=== PATIENT | female | born 1965 | race Caucasian/White ===

== ENCOUNTER 2020-09-23 18:20 | Emergency (ER) | payer MEDICAID ==
[~2020-09-23] VITALS: Ht 152.4 cm; Wt 94.3 kg
[2020-09-23 18:36] VITALS: BP 135/78
[2020-09-23] MEDS ORDERED: NACL 0.9% 1,000 ML IV ONE (19:25)
--- NOTE | 2020-09-23 19:30 | NUR ---
54 Y/O CAME TO THE ED WITH DAUGHTER C/O CHEST PAIN AND HEADACHE X 1 DAY. PT STATES, "I HAVE 8/10 CHEST PAIN AND HEADACHE, DOES NOT RADIATE TO ANYWHERE." DENIES N/V/D; SKIN IS PINK/WARM/DRY; AAOX4 WITH EVEN AND STEADY GAIT; LUNGS CLEAR BL; HR EVEN AND REGULAR; PT DENIES ANY FEVER, PATIENT STATES PAIN OF 7/10 AT THIS TIME; VSS; PATIENT POSITIONED FOR COMFORT; HOB ELEVATED; BEDRAILS UP X2; BED DOWN. ER MD MADE AWARE OF PT STATUS. NKA PMH: DENIES
[2020-09-23 19:44] LABS: BASOPHILS # (AUTO) 0.1 K/uL (0.00-0.22); BASOPHILS % (AUTO) 0.7 % (0.0-2.0); EOSINOPHILS # (AUTO) 0.3 K/uL (0-0.4); EOSINOPHILS % (AUTO) 3.6 % (0.0-4.0); HEMATOCRIT 34.4 % (36-48); LYMPHOCYTES # (AUTO) 2.9 K/uL (2.5-16.5); LYMPHOCYTES % (AUTO) 30.1 % (20.5-51.1); MEAN CORPUSCULAR HEMOGLOBIN 29 pg (27-31); MEAN CORPUSCULAR HGB CONC 35 g/dL (33-37); MEAN CORPUSCULAR VOLUME 83.7 fL (80-94); MONOCYTES # (AUTO) 0.6 K/uL (0.8-1.0); MONOCYTES % (AUTO) 6.6 % (1.7-9.3); NEUTROPHILS # (AUTO) 5.7 K/uL (1.8-7.7); PLATELET COUNT (AUTO) 270 K/uL (140-450); RED BLOOD CELL COUNT(AUTO) 4.12 MIL/uL (4.20-5.40); RED CELL DISTRIBUTION WIDTH 13.8 % (11.6-13.7); WHITE BLOOD COUNT (AUTO) 9.6 K/uL (4.8-10.8)
[2020-09-23 19:49] LABS: ANION GAP 13.9 (8-16); CARBON DIOXIDE 25.5 mmol/L (21-32); POTASSIUM 3.4 mmol/L (3.5-5.1)
[2020-09-23 19:55] LABS: TOTAL BILIRUBIN 0.3 mg/dL (0.0-1.0)
[2020-09-23] MEDS ORDERED: POTASSIUM CHLORIDE 10 MEQ TABER PO ONE (20:55)
[2020-09-23] MEDS ORDERED: ACET-10509 PO (21:34)
[2020-09-23 21:54] VITALS: BP 135/78
--- NOTE | 2020-09-23 21:54 | NUR ---
Patient discharged with v/s stable. Written and verbal after care instructions given and explained. Patient alert, oriented and verbalized understanding of instructions. Ambulatory with steady gait. All questions addressed prior to discharge. ID band removed. Patient advised to follow up with PMD. Rx of AMBULATORY given. Patient educated on indication of medication including possible reaction and side effects. Opportunity to ask questions provided and answered.
== END 2020-09-23 21:55 | disposition home or self-care (01) ==
LOC: MED 18:20
DX: E87.6 Hypokalemia (principal); R07.89 Other chest pain; E11.9 Type 2 diabetes mellitus without complications; I10 Essential (primary) hypertension; Z98.890 Other specified postprocedural states; Z88.0 Allergy status to penicillin; Z79.899 Other long term (current) drug therapy
CPT/HCPCS: 36415; 71045; 80053; 83690; 84484; 85025; 93005; 96360; 99285; J7030

== ENCOUNTER 2023-04-07 01:27 | Inpatient (IN) | payer MEDICAID ==
[~2023-04-07] VITALS: Ht 162.6 cm; Wt 112.5 kg
[~2023-04-07 01:27] MED LIST: ACET-10509 PO
[2023-04-07 01:54] VITALS: BP 150/74; PULSE 68; RESP 17; TEMP 97.8; O2SAT 98
[2023-04-07 05:23] LABS: BASOPHILS % (AUTO) 0.9 % (0.0-2.0); EOSINOPHILS # (AUTO) 0.3 K/uL (0-0.4); EOSINOPHILS % (AUTO) 5.2 % (0.0-4.0); HEMATOCRIT 26.1 % (36-48); HEMOGLOBIN 8.5 g/dL (12.0-16.0); LYMPHOCYTES # (AUTO) 0.6 K/uL (2.5-16.5); MEAN CORPUSCULAR HEMOGLOBIN 28 pg (27-31); MEAN CORPUSCULAR HGB CONC 33 g/dL (33-37); MEAN CORPUSCULAR VOLUME 85.5 fL (80-94); MONOCYTES # (AUTO) 0.5 K/uL (0.8-1.0); MONOCYTES % (AUTO) 8.7 % (1.7-9.3); NEUTROPHILS # (AUTO) 3.9 K/uL (1.8-7.7); NEUTROPHILS % (AUTO) 74.2 % (42.2-75.2); PLATELET COUNT (AUTO) 213 K/uL (140-450); RED BLOOD CELL COUNT(AUTO) 3.05 MIL/uL (4.20-5.40); RED CELL DISTRIBUTION WIDTH 16.5 % (11.6-13.7); WHITE BLOOD COUNT (AUTO) 5.3 K/uL (4.8-10.8)
[2023-04-07 05:31] LABS: APPEARANCE,URINE CLEAR (CLEAR); BILIRUBIN,URINE NEGATIVE (NEGATIVE); BLOOD, URINE 2+ (NEGATIVE); COLOR,URINE YELLOW (YELLOW); LEUKOCYTE ESTERASE ,URINE 2+ (NEGATIVE); NITRITE, URINE NEGATIVE (NEGATIVE); PROTEIN,URINE 3+ (NEGATIVE); UGLUCOSE NEGATIVE (NEGATIVE); UROBILINOGEN,URINE 0.2 EU/dL (0.2 - 1)
[2023-04-07 05:34] LABS: ANION GAP 16.8 (8-16); CALCIUM 8.9 mg/dL (8.5-10.1); CARBON DIOXIDE 18.9 mmol/L (21-32); CREATININE 1.7 mg/dL (0.6-1.3); POTASSIUM 4.7 mmol/L (3.5-5.1)
[2023-04-07 05:36] LABS: INR 1.08 (0.8-1.2); PARTIAL THROMBOPLASTIN TIME 35.2 secs (22-35.6); PROTHROMBIN TIME 11.3 secs (10.8-13.4)
[2023-04-07 05:48] LABS: BACTERIA,URINE >30 (MANY) /HPF (None Seen); MUCUS,URINE 1+ /LPF (None Seen); SQUAMOUS EPITHELIAL CELL,UR 0-3 (FEW) /LPF (0-3 (FEW))
[2023-04-07] MEDS ORDERED: LEVOFLOXACIN 500 MG/D5W PREMIX 100 ML IV ONE (06:40)
[2023-04-07] MEDS ORDERED: ONDANSETRON 4 MG/2 ML VIAL IVP PRN (07:25)
[2023-04-07] MEDS ORDERED: INSULIN LISPRO SLIDING SCALE 100 UNITS/ML VIAL SUBQ PRN (07:25)
[2023-04-07] MEDS ORDERED: DEXTROSE 50% 50 ML SYR IVP PRN (07:25)
[2023-04-07] MEDS: ACETAMINOPHEN 325 MG TAB PO PRN ×2 (08:02→20:11)
[2023-04-07] MEDS: BLOOD GLUCOSE MONITORING 1 DEV DEV FS SCH ×4 (08:03→20:21)
[2023-04-07] MEDS ORDERED: AMLO10TA PO (09:18)
[2023-04-07] MEDS ORDERED: CARV6.25 PO (09:18)
[2023-04-07] MEDS ORDERED: SITA25TA3 PO (09:18)
[2023-04-07] MEDS ORDERED: LISI40TA12 PO (09:18)
[2023-04-07] MEDS ORDERED: FERR-212 PO (09:18)
[2023-04-07] MEDS ORDERED: ERGO2000 PO (09:18)
[2023-04-07] MEDS ORDERED: CEPH-588 PO (09:18)
[2023-04-07] MEDS ORDERED: ATOR40TA PO (09:18)
[2023-04-07] MEDS ORDERED: PIPERACILLIN/TAZOBACTAM 3.375 GM in DEXTROSE 5% 50 ML IV SCH (13:00)
[2023-04-07 16:39] VITALS: PULSE 72; RESP 16; O2SAT 98
[2023-04-07 20:00] VITALS: BP 187/91; PULSE 76; PULSE 77; RESP 20; TEMP 97.3; O2SAT 96
[2023-04-07] MEDS: CLONIDINE HYDROCHLORIDE 0.1 MG TAB PO PRN (20:09)
[2023-04-07] MEDS: FUROSEMIDE 40 MG/4 ML VIAL IVP SCH (20:09)
[2023-04-07 21:30] VITALS: BP 171/58; PULSE 71
[2023-04-07] MEDS: HYDROcodone/APAP 5/325 MG 1 TAB TAB PO PRN (23:33)
[2023-04-08] VITALS (12 sets, daily range): BP systolic 130–176; BP diastolic 34–87; PULSE 69–84; RESP 16–20; TEMP 96.5–98.7; O2SAT 94–98
[2023-04-08] MEDS: CLONIDINE HYDROCHLORIDE 0.1 MG TAB PO PRN (03:58)
[2023-04-08] MEDS: FUROSEMIDE 40 MG/4 ML VIAL IVP SCH ×3 (05:27→20:50)
[2023-04-08 05:43] LABS: BASOPHILS # (AUTO) 0.1 K/uL (0.00-0.22); BASOPHILS % (AUTO) 1.3 % (0.0-2.0); EOSINOPHILS # (AUTO) 0.2 K/uL (0-0.4); EOSINOPHILS % (AUTO) 4.8 % (0.0-4.0); HEMATOCRIT 23.7 % (36-48); HEMOGLOBIN 7.9 g/dL (12.0-16.0); LYMPHOCYTES % (AUTO) 20.7 % (20.5-51.1); MEAN CORPUSCULAR HEMOGLOBIN 28 pg (27-31); MEAN CORPUSCULAR HGB CONC 33 g/dL (33-37); MEAN CORPUSCULAR VOLUME 85.4 fL (80-94); MONOCYTES # (AUTO) 0.5 K/uL (0.8-1.0); MONOCYTES % (AUTO) 10.3 % (1.7-9.3); NEUTROPHILS # (AUTO) 2.9 K/uL (1.8-7.7); NEUTROPHILS % (AUTO) 62.9 % (42.2-75.2); PLATELET COUNT (AUTO) 192 K/uL (140-450); RED BLOOD CELL COUNT(AUTO) 2.78 MIL/uL (4.20-5.40); RED CELL DISTRIBUTION WIDTH 16.8 % (11.6-13.7); WHITE BLOOD COUNT (AUTO) 4.7 K/uL (4.8-10.8)
[2023-04-08 05:47] LABS: ANION GAP 14.8 (8-16); CALCIUM 8.7 mg/dL (8.5-10.1); CARBON DIOXIDE 19.7 mmol/L (21-32); CREATININE 1.8 mg/dL (0.6-1.3); POTASSIUM 4.5 mmol/L (3.5-5.1)
[2023-04-08] MEDS: BLOOD GLUCOSE MONITORING 1 DEV DEV FS SCH ×4 (06:15→20:49)
[2023-04-08] MEDS: HYDROcodone/APAP 5/325 MG 1 TAB TAB PO PRN ×2 (06:20→20:57)
[2023-04-08] MEDS: LEVOFLOXACIN 500 MG/D5W PREMIX 100 ML IV SCH (09:27)
[2023-04-08] MEDS ORDERED: ALGINATE DRESSING MC PRN (15:50)
[2023-04-08] MEDS: ALGINATE DRESSING MC SCH (16:58)
[2023-04-09] MEDS: FUROSEMIDE 40 MG/4 ML VIAL IVP SCH ×2 (05:02→13:19)
[2023-04-09 06:25] LABS: BASOPHILS # (AUTO) 0.1 K/uL (0.00-0.22); BASOPHILS % (AUTO) 1.2 % (0.0-2.0); EOSINOPHILS # (AUTO) 0.2 K/uL (0-0.4); EOSINOPHILS % (AUTO) 5.4 % (0.0-4.0); HEMATOCRIT 24.4 % (36-48); LYMPHOCYTES # (AUTO) 0.9 K/uL (2.5-16.5); LYMPHOCYTES % (AUTO) 19.6 % (20.5-51.1); MEAN CORPUSCULAR HEMOGLOBIN 28 pg (27-31); MEAN CORPUSCULAR HGB CONC 33 g/dL (33-37); MEAN CORPUSCULAR VOLUME 85.4 fL (80-94); MONOCYTES # (AUTO) 0.5 K/uL (0.8-1.0); MONOCYTES % (AUTO) 10.6 % (1.7-9.3); NEUTROPHILS # (AUTO) 2.9 K/uL (1.8-7.7); NEUTROPHILS % (AUTO) 63.2 % (42.2-75.2); PLATELET COUNT (AUTO) 193 K/uL (140-450); RED BLOOD CELL COUNT(AUTO) 2.85 MIL/uL (4.20-5.40); RED CELL DISTRIBUTION WIDTH 16.6 % (11.6-13.7); WHITE BLOOD COUNT (AUTO) 4.6 K/uL (4.8-10.8)
[2023-04-09 06:35] LABS: CARBON DIOXIDE 19.4 mmol/L (21-32); CREATININE 1.9 mg/dL (0.6-1.3); POTASSIUM 4.4 mmol/L (3.5-5.1)
[2023-04-09] MEDS: BLOOD GLUCOSE MONITORING 1 DEV DEV FS SCH ×3 (06:48→16:30)
[2023-04-09 08:00] VITALS: BP 170/82; PULSE 68; PULSE 71; RESP 20; TEMP 36.2; O2SAT 99
[2023-04-09] MEDS: LEVOFLOXACIN 500 MG/D5W PREMIX 100 ML IV SCH (08:24)
[2023-04-09] MEDS ORDERED: traMADol 50 MG TAB PO PRN (08:55)
[2023-04-09] MEDS ORDERED: ATORVASTATIN 20 MG TAB PO SCH (09:00)
[2023-04-09] MEDS ORDERED: carvediloL 6.25 MG TAB PO SCH (09:00)
[2023-04-09] MEDS ORDERED: lisinopriL 20 MG TAB PO SCH (09:00)
[2023-04-09] MEDS ORDERED: amLODIPine 5 MG TAB PO SCH (09:00)
[2023-04-09] MEDS ORDERED: hydrALAZINE 20 MG/ML VIAL IVP SCH (11:15)
[2023-04-09 12:00] VITALS: BP 164/75; PULSE 71; RESP 20; TEMP 97; O2SAT 99
[2023-04-09] MEDS: ALGINATE DRESSING MC SCH (13:00)
[2023-04-09] MEDS: CLONIDINE HYDROCHLORIDE 0.1 MG TAB PO PRN (13:21)
[2023-04-09 16:51] VITALS: BP 154/66; PULSE 77; RESP 20; TEMP 97
[2023-04-11] MEDS ORDERED: FERROUS SULFATE 325 MG TABEC PO SCH (09:00)
== END 2023-04-09 18:56 | disposition home or self-care (01) | DRG 420 ==
LOC: MED 01:27 → MTU 07:27
PROVIDERS: ADMIT Family Medicine; ATTEND Family Medicine
DX: E11.621 Type 2 diabetes mellitus with foot ulcer (principal); G92.8 Other toxic encephalopathy; N17.9 Acute kidney failure, unspecified; E44.0 Moderate protein-calorie malnutrition; S81.801A Unspecified open wound, right lower leg, initial encounter; S81.802A Unspecified open wound, left lower leg, initial encounter; X58.XXXA Exposure to other specified factors, initial encounter; Z88.0 Allergy status to penicillin; Z79.899 Other long term (current) drug therapy; Y93.89 Activity, other specified; Y92.89 Other specified places as the place of occurrence of the external cause; Y99.8 Other external cause status; Z68.41 Body mass index [BMI] 40.0-44.9, adult
CPT/HCPCS: 36415; 71045; 76770; 80048; 81001; 82570; 82948; 83735; 83880; 84100; 84156; 84300; 84484; 85025; 85610; 85730; 87040; 87081; 87086; 93005; 93970; 96365; 99285; A4649; J0360; J1644; J1815; J1940; J1956; Q0092; Q0163